=== PATIENT | male | born 1985 | race Caucasian/White ===

== ENCOUNTER 2017-10-21 15:22 | Emergency (ER) | payer SELFPAY ==
[~2017-10-21] VITALS: Ht 172.7 cm; Wt 84.8 kg
[2017-10-21 15:29] VITALS: BP 132/84
--- NOTE | 2017-10-21 15:29 | NUR ---
PT AMBULATED TO BED 5.
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
[2017-10-21] MEDS ORDERED: KETOROLAC 60 MG/2 ML VIAL IM ONE (17:00)
--- NOTE | 2017-10-21 17:35 | NUR ---
PT RETURNED FROM XRAY
--- NOTE | 2017-10-21 19:05 | NUR ---
RECIEVED REPORT FROM SREEKANTH RN
--- NOTE | 2017-10-21 19:35 | NUR ---
CMS INTACT AFTER SPLINT AND SLING PLACED
[2017-10-21 19:41] VITALS: BP 143/78
--- NOTE | 2017-10-21 19:41 | NUR ---
Patient discharged with v/s stable with CMS intact. Written and verbal after care instructions given and explained. Patient alert, oriented and verbalized understanding of instructions. Ambulatory with steady gait. All questions addressed prior to discharge. ID band removed. Patient advised to follow up with PMD. Rx of Voltaran ER Tab given. Patient educated on indication of medication including possible reaction and side effects. Opportunity to ask questions provided and answered.
== END 2017-10-21 19:41 | disposition home or self-care (01) ==
LOC: MED 15:22
DX: S62.394A Other fracture of fourth metacarpal bone, right hand, initial encounter for closed fracture (principal); X58.XXXA Exposure to other specified factors, initial encounter; Y93.89 Activity, other specified; Y92.89 Other specified places as the place of occurrence of the external cause; Y99.8 Other external cause status
CPT/HCPCS: 29125; 73130; 99284; J1885